=== PATIENT | male | born 1960 | race Caucasian/White ===

== ENCOUNTER 2018-09-21 12:49 | Emergency (ER) | payer OTHER ==
--- NOTE | 2018-09-21 13:04 | ER Report ---
History and Physical Time Seen By MD: 13:02 Hx. of Stated Complaint: dizziness, numbness and tingling in bilateral hands HPI/ROS CHIEF COMPLAINT: dizziness, numbness and tingling in bilateral hands HISTORY OF PRESENT ILLNESS: 58 year old male presents to ED after having some dizziness, and numbness and tingling in bilateral hands. He reports that approximately 2 weeks ago he noticed his right eye was droopy, but it went away. Yesterday morning he noticed his left pupil was more dilated than the right. Patient is from [place], but has been in [place] at [place]. He currently works for the [employer]. He called his doctor in [place] to set up an appointment for . They told him that he needed to go to the nearest ER if he experienced numbness or tingling, dizziness, chest pain, or other concerns. Patient reports that about 5 minutes later, he started to experience numbness and tingling in his hands bilaterally and had some dizziness. Reports this was about 11:00 or 11:30AM. Reports the dizziness subsided over 5 minutes and the numbness/tingling subsided over 10 minutes. But he decided to come to the ER to get checked out. He denies current headache, dizziness, vision changes, numbness/tingling, nausea, vomiting, chest pain, or SOB. REVIEW OF SYSTEMS: Respiratory: No cough, no dyspnea. Cardiovascular: No chest pain, no palpitations. Gastrointestinal: No vomiting, no abdominal pain. Musculoskeletal: No back pain. Allergies: Coded Allergies: No Known Drug Allergies (Unverified , 09/21/18) Past Medical/Surgical History Past medical hx significant for HTN, migraines, and dislocated shoulder in 2019. Past surgical hx of tonsillectomy at age 7. Reviewed Nurses Notes: Yes Constitutional Vital Sign - Last 24 Hours 09/21/18 13:03 Temp 98.2 Pulse 71 Resp 16 B/P (MAP) 141/103 Pulse Ox 96 O2 Delivery Room Air Physical Exam General Appearance: The patient is alert, has no immediate need for airway protection and no current signs of toxicity. Eyes: Pupils not equal bilaterally. Left pupil more dilated than right. Respiratory: Chest is non tender, lungs are clear to auscultation. Cardiac: regular rate and rhythm Gastrointestinal: Abdomen is soft and non tender, no masses, bowel sounds normal. Musculoskeletal: Neck: Neck is supple and non tender. Extremities have full range of motion and are non tender. Neuro: Pupils are not equal in size- left pupil more dilated than right. However, both constrict with light and accommodate. Alert and oriented X3, EOM intact in all cranial harrison, pronator drift negative, able to perform nose to finger without difficulty, strength in upper and lower extremities equal bilaterally. Skin: No rashes or lesions. DIFFERENTIAL DIAGNOSIS: After history and physical exam differential diagnosis was considered for stroke, GA, third nerve paralysis, chemical or drug induced anisocoria. Medical Decision Making Data Points Result Diagram: 09/21/18 1306 09/21/18 1306 Laboratory Hematology Test 09/21/18 13:06 Red Blood Count 5.29 M/uL (4.00-5.60) Mean Corpuscular Volume 93.1 fL (80.0-96.0) Mean Corpuscular Hemoglobin 33.0 pg (26.0-33.0) Mean Corpuscular Hemoglobin Concent 35.5 g/dL (32.0-36.0) Red Cell Distribution Width 12.8 % (11.5-14.5) Mean Platelet Volume 9.6 fL (7.2-11.1) Neutrophils (%) (Auto) 53.4 % (39.4-72.5) Lymphocytes (%) (Auto) 30.3 % (17.6-49.6) Monocytes (%) (Auto) 10.6 % (4.1-12.4) Eosinophils (%) (Auto) 4.5 % (0.4-6.7) Basophils (%) (Auto) 1.2 % (0.3-1.4) Nucleated RBC Relative Count (auto) 0.0 /100WBC Neutrophils # (Auto) 3.8 K/uL (2.0-7.4) Lymphocytes # (Auto) 2.1 K/uL (1.3-3.6) Monocytes # (Auto) 0.7 K/uL (0.3-1.0) Eosinophils # (Auto) 0.3 K/uL (0.0-0.5) Basophils # (Auto) 0.1 K/uL (0.0-0.1) Nucleated RBC Absolute Count (auto) 0.00 K/uL Prothrombin Time 13.2 seconds (12.0-14.4) Prothromb Time International Ratio 1.00 Activated Partial Thromboplast Time 30 seconds (23-35) Sodium Level 142 mmol/L (137-145) Potassium Level 3.5 mmol/L (3.5-5.0) Chloride Level 102 mmol/L (98-107) Carbon Dioxide Level 30 mmol/L (22-30) Blood Urea Nitrogen 9 mg/dl (9-21) Creatinine 0.70 mg/dl (0.66-1.25) Glomerular Filtration Rate Calc > 60.0 Random Glucose 89 mg/dl (75-110) Calcium Level 9.4 mg/dl (8.4-10.2) Total Bilirubin 0.5 mg/dl (0.2-1.3) Aspartate Amino Transf (AST/SGOT) 27 U/L (0-35) Alanine Aminotransferase (ALT/SGPT) 40 U/L (0-56) Alkaline Phosphatase 106 U/L (0-126) Total Protein 7.5 g/dl (6.3-8.2) Albumin 4.4 g/dl (3.5-5.0) Chemistry Test 09/21/18 13:06 White Blood Count 7.0 k/uL (4.5-11.0) Red Blood Count 5.29 M/uL (4.00-5.60) Hemoglobin 17.5 g/dL (14.0-18.0) Hematocrit 49.3 % (42.0-52.0) Mean Corpuscular Volume 93.1 fL (80.0-96.0) Mean Corpuscular Hemoglobin 33.0 pg (26.0-33.0) Mean Corpuscular Hemoglobin Concent 35.5 g/dL (32.0-36.0) Red Cell Distribution Width 12.8 % (11.5-14.5) Platelet Count 198 K/uL (150-450) Mean Platelet Volume 9.6 fL (7.2-11.1) Neutrophils (%) (Auto) 53.4 % (39.4-72.5) Lymphocytes (%) (Auto) 30.3 % (17.6-49.6) Monocytes (%) (Auto) 10.6 % (4.1-12.4) Eosinophils (%) (Auto) 4.5 % (0.4-6.7) Basophils (%) (Auto) 1.2 % (0.3-1.4) Nucleated RBC Relative Count (auto) 0.0 /100WBC Neutrophils # (Auto) 3.8 K/uL (2.0-7.4) Lymphocytes # (Auto) 2.1 K/uL (1.3-3.6) Monocytes # (Auto) 0.7 K/uL (0.3-1.0) Eosinophils # (Auto) 0.3 K/uL (0.0-0.5) Basophils # (Auto) 0.1 K/uL (0.0-0.1) Nucleated RBC Absolute Count (auto) 0.00 K/uL Prothrombin Time 13.2 seconds (12.0-14.4) Prothromb Time International Ratio 1.00 Activated Partial Thromboplast Time 30 seconds (23-35) Glomerular Filtration Rate Calc > 60.0 Calcium Level 9.4 mg/dl (8.4-10.2) Total Bilirubin 0.5 mg/dl (0.2-1.3) Aspartate Amino Transf (AST/SGOT) 27 U/L (0-35) Alanine Aminotransferase (ALT/SGPT) 40 U/L (0-56) Alkaline Phosphatase 106 U/L (0-126) Total Protein 7.5 g/dl (6.3-8.2) Albumin 4.4 g/dl (3.5-5.0) Coagulation Test 09/21/18 13:06 Prothrombin Time 13.2 seconds Prothromb Time International Ratio 1.00 Activated Partial Thromboplast Time 30 seconds EKG/Imaging EKG Interpretation 12 lead EKG: Rhythm: Normal sinus rhythm with ventricular rate at 63bpm [place]: normal QRS: normal ST segments: normal Monitor Interpretation: Normal Sinus Rhythm Imaging PATIENT NAME: Karson Bull : 1960 MR: [id number] V: [id number] EXAM DATE: ORDERING PHYSICIAN: AURY DELGADO TECHNOLOGIST: Location: [facility] Patient: Karson Bull : 1960 Visit/Account:[id number] Date of Sevice: 09/21/[address] scan without contrast COMPARISONS: None ADDITIONAL PERTINENT HISTORY: Dilated left pupil this morning TECHNIQUE: Multiple axial images were obtained from the skull base to the vertex without IV contrast. One of the following dose optimization techniques was utilized in the performance of this exam: Automated exposure control; adju stment of the mA and/or kV according to the patient's size; or use of an iterative reconstruction technique. Specific details can be referenced in the facility's radiology CT exam operational policy. FINDINGS: Midline shift: Negative Ventricles: Negative Brain parenchyma: Negative Extra-axial spaces: Negative Intracranial vasculature: Mild cavernous internal carotid artery calcif ications. Otherwise negative Osseous structures: Negative Paranasal sinuses and mastoid air cells: Moderate sized mucus retention cyst involving the right maxillary sinus. Surrounding soft tissues and orbits: Negative IMPRESSION: 1. No evidence of acute intracranial pathology. 2. Underlying paranasal sinus disease. EXAMINATION: MRI Brain without IV contrast MRI Brain with IV contrast HISTORY: Anisocoria. Dizzy. Dilated left pupil. COMPARISON: CT of the head from the same day. TECHNIQUE: Multi-planar, multi-sequence brain MRI was performed before and after IV gadolinium. CONTRAST: 13 mL of IV MultiHance FINDINGS: Brain and other intracranial structures: Ventricles and sulci are normal in size. There is a punctate T2 hyperintense focus in the left frontal subcortical white matter. No pathologic enhancement. No midline shift, mass, hemorrhage, or acute infarct. Calvarium / scalp: Negative. Skull base: Negative. Visualized sinuses / orbits: Mucous retention cyst in the right maxillary sinus. Trace mucosal thickening in the ethmoid air cells. IMPRESSION: No acute intracranial abnormality or mass lesion. There is a punctate T2 hyperintense focus in the left frontal subcortical white matter which is of doubtful clinical significance. ED Course/Re-evaluation ED Course Upon arrival to the ED, patient admitted to an exam room, hx and physical obtained, differentials considered. 58 year old male presents to ED after having some dizziness, and numbness and tingling in bilateral hands. He reports that approximately 2 weeks ago he noticed his right eye was droopy, but it went away. Yesterday morning he noticed his left pupil was more dilated than the right. Patient is from [place], but has been in [place] at [place]. He currently works for the [employer]. He called his doctor in [place] to set up an appointment for . They told him that he needed to go to the nearest ER if he experienced numbness or tingling, dizziness, chest pain, or other concerns. Patient reports that about 5 minutes later, he started to experience numbness and tingling in his hands bilaterally and had some dizziness. Reports this was about 11:00 or 11:30AM. Reports the dizziness subsided over 5 minutes and the numbness/tingling subsided over 10 minutes. He denies current headache, dizziness, vision changes, numbness/tingling, nausea, vomiting, chest pain, or SOB. On exam, heart rate and rhythm are regular, lungs are clear. Pupils are not equal in size- left pupil more dilated than right. However, both constrict with light and accommodate. Alert and oriented X3, EOM intact in all cranial harrison, pronator drift negative, able to perform nose to finger without difficulty, strength in upper and lower extremities equal bilaterally. IV started. CBC, CMP, PT/PTT, head CT, and EKG ordered. EKG normal sinus rhythm. Labs unremarkable. PT is 13.2, PTT is 30. Dr. White consulted regarding no abnormal finding on CT scan, excpet for the sinusitis, and differing pupil sizes. No evidence of acute intracranial pathology noted on head CT. Dr. White, neurology from [facility], was contacted regarding patient. Dr. White recommended patient get an MRI to look for a brainstem bleed or infarct and then refer to ophthalmology. Dr. White feels that this is likely a third nerve palsy. Patient agreed to have an MRI done. MRI with no acute intracranial abnormality or mass lesion. Will discharge patient and have him follow-up with ophthalmology and his PCP for elevated blood pressure. Patient agrees with plan of care. Decision to Disposition Date: Sep 21, 2018 Decision to Disposition Time: 16:23 Depart Departure Latest Vital Signs Vital Signs Date Time Temp Pulse Resp B/P (MAP) Pulse Ox O2 Delivery O2 Flow Rate FiO2 09/21/18 13:03 98.2 71 16 141/103 96 Room Air Impression: Primary Impression: Third cranial nerve palsy Condition: Condition Unchanged Disposition: HOME OR SELF-CARE Patient Instructions: GENERAL ER DISCHARGE INSTRUCTIONS Additional Instructions: Please drink plenty of fluids and get plenty of rest. Follow-up with an solar consultant in [place]. Follow-up with your primary care provider on as scheduled. Please return to the ED with dizziness, numbness or tingling in your extremities, chest pain, headache, any difficulty breathing, or for any other concern. SKIN DIVING TEACHER/PA consult with MD: Verbally MD Consult Note: Dr. White consulted regarding no abnormal finding on CT scan, excpet for the sinusitis, and differing pupil sizes. Dr. White recommended patient get an MRI to look for a brainstem bleed or infarct and refer to ophthalmology. Problem Qualifiers Primary Impression: Third cranial nerve palsy Laterality: left Qualified Codes: H49.02 - Third [oculomotor] nerve palsy, left eye AURY DELGADO CONSUMER MARKETING SPECIALIST Sep 21, 2018 13:04
--- NOTE | 2018-09-21 13:27 | EKG ---
FACILITY: [facility] PATIENT NAME: BUTCH BAIRES : [id number] MR: [id number] V: [id number] EXAM DATE: ORDERING PHYSICIAN: AURY DELGADO TECHNOLOGIST: CARMINA Jackson Reason : Blood Pressure : / mmHG Vent. Rate : 063 BPM Atrial Rate : 063 BPM P-R Int : 158 ms QRS Dur : 102 ms QT Int : 384 ms P-R-T Axes : 072 020 060 degrees QTc Int : 392 ms Normal sinus rhythm Normal ECG No previous ECGs available Confirmed by KIRT SMITH ([id number]) on 09/22/2018 6:23:56 AM Referred By: SANDY Confirmed By:KIRT SMITH
[2018-09-21 13:34] LABS: PLATELET COUNT, AUTOMATED 198 K/uL (150-450)
--- NOTE | 2018-09-21 14:10 | RADIOLOGY IMAGING REPORT ---
FACILITY: [facility] PATIENT NAME: Karson Bull : 1960 MR: [id number] V: [id number] EXAM DATE: ORDERING PHYSICIAN: AURY DELGADO TECHNOLOGIST: Location: [facility] Patient: Karson Bull : 1960 Visit/Account:[id number] Date of Sevice: 09/21/[address] scan without contrast COMPARISONS: None ADDITIONAL PERTINENT HISTORY: Dilated left pupil this morning TECHNIQUE: Multiple axial images were obtained from the skull base to the vertex without IV contrast . One of the following dose optimization techniques was utilized in the performance of this exam: Aut omated exposure control; adjustment of the mA and/or kV according to the patient's size; or use of an iterative reconstruction technique. Specific details can be referenced in the facility's radiology CT exam operational policy. FINDINGS: Midline shift: Negative Ventricles: Negative Brain parenchyma: Negative Extra-axial spaces: Negative Intracranial vasculature: Mild cavernous internal carotid artery calcifications. Otherwise negative Osseous structures: Negative Paranasal sinuses and mastoid air cells: Moderate sized mucus retention cyst involving the right max illary sinus. Surrounding soft tissues and orbits: Negative IMPRESSION: 1. No evidence of acute intracranial pathology. 2. Underlying paranasal sinus disease. Report Dictated By: Robe Cerrato MD at 09/21/2018 1:59 PM Report E-Signed By: Robe Cerrato MD at 09/21/2018 2:02 PM WSN:[id number]
[2018-09-21 15:00] VITALS: BP 136/102
[2018-09-21] MEDS ORDERED: GADOBENATE 529MG/1ML 15ML VIAL IVP ONE (15:31)
--- NOTE | 2018-09-21 16:18 | RADIOLOGY IMAGING REPORT ---
FACILITY: [facility] PATIENT NAME: Karson Bull : 1960 MR: [id number] V: [id number] EXAM DATE: ORDERING PHYSICIAN: AURY DELGADO TECHNOLOGIST: Location: [facility] Patient: Karson Bull : 1960 Visit/Account:[id number] Date of Sevice: 09/21/2018 EXAMINATION: MRI Brain without IV contrast MRI Brain with IV contrast HISTORY: Anisocoria. Dizzy. Dilated left pupil. COMPARISON: CT of the head from the same day. TECHNIQUE: Multi-planar, multi-sequence brain MRI was performed before and after IV gadolinium. CONTRAST: 13 mL of IV MultiHance FINDINGS: Brain and other intracranial structures: Ventricles and sulci are normal in size. There is a punctat e T2 hyperintense focus in the left frontal subcortical white matter. No pathologic enhancement. No midline shift, mass, hemorrhage, or acute infarct. Calvarium / scalp: Negative. Skull base: Negative. Visualized sinuses / orbits: Mucous retention cyst in the right maxillary sinus. Trace mucosal thick ening in the ethmoid air cells. IMPRESSION: No acute intracranial abnormality or mass lesion. There is a punctate T2 hyperintense focus in the left frontal subcortical white matter which is of do ubtful clinical significance. Report Dictated By: Jaydon Storey MD at 09/21/2018 4:03 PM Report E-Signed By: Jaydon Storey MD at 09/21/2018 4:13 PM WSN:[id number]
== END 2018-09-21 16:38 | disposition home or self-care (01) ==
LOC: ER 13:04
DX: H49.02 Third [oculomotor] nerve palsy, left eye (principal); H57.02 Anisocoria; H57.04 Mydriasis; I10 Essential (primary) hypertension
CPT/HCPCS: 70450; 70553; 85025; 85610; 85730; 93005; 99284; A9577; 82040; 82247; 82310; 82374; 82435; 82565; 82947; 84075; 84132; 84155; 84295; 84450; 84460; 84520